=== PATIENT | male | born 1990 | race Caucasian/White ===

== ENCOUNTER 2023-06-23 23:26 | Emergency (ER) | payer SELFPAY ==
[2023-06-23 23:45] VITALS: RESP 16; TEMP 97.6
[2023-06-24 00:04] VITALS: O2SAT 99
[2023-06-24] MEDS ORDERED: BABY ASPIRIN 81 MG CHEW PO ONE (00:08)
[2023-06-24 00:11] LABS: Absolute Neutrophil Ct (ANC) 10.43 x10^3/uL (1.4-6.9); BASOPHIL % 0.5 % (0.0-0.4); Basophil (Absolute #) 0.07 x10^3/uL (0-0.4); Eosinophil % 0.2 % (0.00-5.0); Eosinophil (Absolute #) 0.03 x10^3/uL (0-0.5); Hemoglobin 14.3 g/dL (12.5-18.0); IMMATURE GRAN # 0.05 x10^3u/L (0.00-0.03); IMMATURE GRAN % 0.4 % (0.00-0.4); Lymphocyte (Absolute #) 1.77 x10^3/uL (1.0-4.6); Lymphocytes % 12.8 % (24.0-44.0); Mean Cell Volume 98.2 fL (78-100); Mean Corpuscular Hemoglobin 32.6 pg (26-32); Mean Corpuscular Hgb Concent. 33.3 g/dL (32-36); Mean Platelet Volume 10.3 fL (7.5-11.0); Monocyte (Absolute #) 1.44 x10^3/uL (0.0-1.3); Monocytes % 10.4 % (0.0-12.0); Neutrophil % 75.7 % (36.0-66.0); Platelet Count 222 x10^3/uL (150-450); Red Blood Count 4.38 x10^6/uL (4.1-5.6); White Blood Count 13.8 x10^3/uL (4.0-10.5)
[2023-06-24] MEDS ORDERED: BABY ASPIRIN 81 MG CHEW ONE (00:18)
[2023-06-24 00:25] LABS: ALBUMIN 5.5 g/dL (3.5-5.0); ANION GAP 19.3 MEQ/L (5-15); BILIRUBIN,TOTAL 0.9 mg/dL (0.2-1.3); Calcium 10.2 mg/dL (8.4-10.2); Creatinine 1 2.11 mg/dL (0.66-1.25); EST GLOMERULAR FILTRATION RATE 38.6 ML/MIN; Potassium 4.3 mmol/L (3.5-5.1); Total Protein 8.6 g/dL (6.3-8.2)
--- NOTE | 2023-06-24 00:29 | ERPHSYRPT ---
- History of Present Illness Time Seen by Provider: 06/24/23 00:07 Historian: patient Exam Limitations: no limitations Patient Subjective Stated Complaint: pt states while he was at work he began having chest pain, nonradiating. describes as aching and cramping. states pain resolved when he was leaving work. Triage Nursing Assessment: pt alert and oriented, answers questions approp. pt ambulates into room with steady gait noted. respirations nonlabored with lungs cta. heart rate 88, sinus rhythm on monitor. skin warm and dry- pt has coal dust covering him from work. Physician History: Patient is a 33-year-old male presents to our ED for evaluation of nonradiating substernal chest pain that occurred while he was at work. Patient reports chest pain lasted approximately 2 hours. Patient left work to come to our ED and chest pain went away. Upon arrival to our ED patient was pain-free. Pain was described as a achy crampy sensation. No associated nausea vomiting or diaphoresis. Patient has no cardiac history. No trauma. No fever. Patient currently asymptomatic and voices no other complaints or concerns at this time. Portions of this note were created with voice recognition technology. There may be grammatical, spelling, punctuation or sound alike errors Timing/Duration: today Activities at Onset: other (Working) Quality: aching, cramping Location: substernal Chest Pain Radiation: no radiation Severity of Pain-Max: moderate Severity of Pain-Current: mild Modifying Factors: Improves With: nothing Associated Symptoms: denies symptoms Prior Chest Pain/Cardiac Workup: no prior chest pain Nitro Today/Relief: no nitro taken today Aspirin Treatment Today: no aspirin today Allergies/Adverse Reactions: Penicillins Allergy (Verified 06/23/23 23:45) Hives Home Medications: Buprenorphine HCl/Naloxone HCl [Buprenorphin-Naloxon 8-2 mg Sl] 1 each SL DAILY 06/23/23 [History] Lisinopril 10 mg [Zestril 10 MG] 10 mg PO DAILY 06/23/23 [History] Hx Tetanus, Diphtheria Vaccination/Date Given: Yes Hx Influenza Vaccination/Date Given: No Hx Pneumococcal Vaccination/Date Given: No Immunizations Up to Date: Yes Travel Risk - International Travel Have you traveled outside of the country in past 3 weeks: No - Coronavirus Screening Are you exhibiting any of the following symptoms?: No Close contact with a COVID-19 positive Pt in past 14-21 Days: No - Vaccine Status Have you recieved a Covid-19 vaccination: No - Review of Systems Constitutional: No Symptoms, No Fever, No Chills Eyes: No Symptoms Ears, Nose, & Throat: No Symptoms Respiratory: No Symptoms, No Cough, No Dyspnea Cardiac: No Symptoms, No Chest Pain, No Edema, No Syncope Abdominal/Gastrointestinal: No Symptoms, No Abdominal Pain, No Nausea, No Vomiting, No Diarrhea Genitourinary Symptoms: No Symptoms, No Dysuria Musculoskeletal: No Symptoms, No Back Pain, No Neck Pain Skin: No Symptoms, No Rash Neurological: No Symptoms, No Dizziness, No Focal Weakness, No Sensory Changes Psychological: No Symptoms Endocrine: No Symptoms Hematologic/Lymphatic: No Symptoms Immunological/Allergic: No Symptoms All Other Systems: Reviewed and Negative - Past Medical History Pertinent Past Medical History: Yes Cardiac History: Hypertension Musculoskeletal History: Other Other Medical History: CHRONIC BACK PAIN - Past Surgical History Past Surgical History: Yes Other Surgical History: NOSE - Social History Smoking Status: Current every day smoker How long have you smoked: 20yrs Exposure to second hand smoke: Yes Drug Use: none Patient Lives Alone: No Significant Family History: no pertinent family hx - Nursing Vital Signs Nursing Vital Signs: Initial Vital Signs Temperature 97.6 F 06/23/23 23:30 Pulse Rate 88 06/23/23 23:30 Respiratory Rate 16 06/23/23 23:30 Blood Pressure 119/64 06/23/23 23:30 O2 Sat by Pulse Oximetry 100 06/23/23 23:30 Pain Scale Pain Intensity 0 - Physical Exam General Appearance: no apparent distress, alert Eye Exam: PERRL/EOMI, eyes nml inspection Ears, Nose, Throat Exam: normal ENT inspection, moist mucous membranes Neck Exam: normal inspection, non-tender, supple, full range of motion Respiratory Exam: normal breath sounds, lungs clear, airway intact, No respirat ory distress Cardiovascular Exam: regular rate/rhythm, normal heart sounds Gastrointestinal/Abdomen Exam: soft, No tenderness, No mass Back Exam: normal inspection, No CVA tenderness, No vertebral tenderness Extremity Exam: normal inspection, normal range of motion Neurologic Exam: alert, oriented x 3, cooperative, normal mood/affect, sensation nml, No motor deficits Skin Exam: normal color, warm, dry Lymphatic Exam: No adenopathy SpO2 Interpretation: normal SpO2: 99 O2 Delivery: Room Air - Course Nursing assessment & vital signs reviewed: Yes EKG Interpreted by Me: RATE ([id number]), Sinus Rhythm, NORMAL AXIS, NORMAL INTERVALS Ordered Tests: Active Orders 24 hr Category Date Time Status AMA [Release AMA] OM.NOW Care 06/24/23 01:16 Active Subsystems Engineer STAT Care 06/23/23 23:54 Active EKG-ER Only STAT Care 06/23/23 23:53 Active IV Insertion STAT Care 06/23/23 23:53 Active Pulse Oximetry (ED) STAT Care 06/23/23 23:53 Active CBC W DIFF Stat Lab 06/23/23 23:45 Completed CMP Stat Lab 06/23/23 23:45 Completed D-DIMER QUANTITATIVE Stat Lab 06/23/23 23:45 Completed TROPONIN Q4H Lab 06/23/23 23:45 Completed TROPONIN Q4H Lab 06/24/23 03:54 Ordered TROPONIN Q4H Lab 06/24/23 07:54 Ordered Urine Triage Profile Stat Lab 06/23/23 23:54 Ordered Medication Summary Discontinued Medications Generic Name Dose Route Start Last Admin Trade Name Freq PRN Reason Stop Dose Admin Aspirin 324 mg 06/24/23 00:08 06/24/23 00:20 Aspirin 81 Mg Tab.Chew PO 06/24/23 00:09 324 mg STAT ONE Administration Aspirin Confirm 06/24/23 00:18 Aspirin 81 Mg Tab.Chew Administered 06/24/23 00:19 Dose 324 mg .ROUTE .STK-MED ONE Furosemide 40 mg 06/24/23 00:31 06/24/23 00:33 Furosemide 40 Mg/4 Ml Vial IV 06/24/23 00:32 Not Given STAT ONE Lab/Rad Data: Laboratory Result Diagrams 06/23/23 23:45 06/23/23 23:45 Laboratory Results 06/23/23 06/23/23 06/23/23 Range/Units 23:45 23:45 23:45 WBC (4.0-10.5) x10^3/uL RBC (4.1-5.6) x10^6/uL Hgb (12.5-18.0) g/dL Hct (42-50) % MCV (78-100) fL MCH (26-32) pg MCHC (32-36) g/dL RDW (11.5-14.0) % Plt Count (150-450) x10^3/uL MPV (7.5-11.0) fL Gran % (36.0-66.0) % Immature Gran % (Auto) (0.00-0.4) % Nucleat RBC Rel Count (0.00-0.1) % Eos # (Auto) (0-0.5) x10^3/uL Immature Gran # (Auto) (0.00-0.03) x10^3u/L Absolute Lymphs (auto) (1.0-4.6) x10^3/uL Absolute Monos (auto) (0.0-1.3) x10^3/uL Absolute Nucleated RBC (0.00-0.01) x10^3u/L Lymphocytes % (24.0-44.0) % Monocytes % (0.0-12.0) % Eosinophils % (0.00-5.0) % Basophils % (0.0-0.4) % Absolute Granulocytes (1.4-6.9) x10^3/uL Basophils # (0-0.4) x10^3/uL D-Dimer 0.29 (0.0-0.50) mg/L Sodium 136 L (137-145) mmol/L Potassium 4.3 (3.5-5.1) mmol/L Chloride 96 L (98-107) mmol/L Carbon Dioxide 25 (22-30) mmol/L Anion Gap 19.3 H (5-15) MEQ/L BUN 32 H (9-20) mg/dL Creatinine 2.11 H (0.66-1.25) mg/dL Estimated GFR 38.6 ML/MIN Glucose 99 (74-106) mg/dL Calcium 10.2 (8.4-10.2) mg/dL Total Bilirubin 0.90 (0.2-1.3) mg/dL AST 92 H (17-59) U/L ALT 178 H (0-50) U/L Alkaline Phosphatase 69 (38-126) U/L Troponin I < 0.012 (0.000-0.034) ng/mL Serum Total Protein 8.6 H (6.3-8.2) g/dL Albumin 5.5 H (3.5-5.0) g/dL 06/23/23 Range/Units 23:45 WBC 13.8 H (4.0-10.5) x10^3/uL RBC 4.38 (4.1-5.6) x10^6/uL Hgb 14.3 (12.5-18.0) g/dL Hct 43.0 (42-50) % MCV 98.2 (78-100) fL MCH 32.6 H (26-32) pg MCHC 33.3 (32-36) g/dL RDW 12.0 (11.5-14.0) % Plt Count 222 (150-450) x10^3/uL MPV 10.3 (7.5-11.0) fL Gran % 75.7 H (36.0-66.0) % Immature Gran % (Auto) 0.4 (0.00-0.4) % Nucleat RBC Rel Count 0.0 (0.00-0.1) % Eos # (Auto) 0.03 (0-0.5) x10^3/uL Immature Gran # (Auto) 0.05 H (0.00-0.03) x10^3u/L Absolute Lymphs (auto) 1.77 (1.0-4.6) x10^3/uL Absolute Monos (auto) 1.44 H (0.0-1.3) x10^3/uL Absolute Nucleated RBC 0.00 (0.00-0.01) x10^3u/L Lymphocytes % 12.8 L (24.0-44.0) % Monocytes % 10.4 (0.0-12.0) % Eosinophils % 0.2 (0.00-5.0) % Basophils % 0.5 (0.0-0.4) % Absolute Granulocytes 10.43 H (1.4-6.9) x10^3/uL Basophils # 0.07 (0-0.4) x10^3/uL D-Dimer (0.0-0.50) mg/L Sodium (137-145) mmol/L Potassium (3.5-5.1) mmol/L Chloride (98-107) mmol/L Carbon Dioxide (22-30) mmol/L Anion Gap (5-15) MEQ/L BUN (9-20) mg/dL Creatinine (0.66-1.25) mg/dL Estimated GFR ML/MIN Glucose (74-106) mg/dL Calcium (8.4-10.2) mg/dL Total Bilirubin (0.2-1.3) mg/dL AST (17-59) U/L ALT (0-50) U/L Alkaline Phosphatase (38-126) U/L Troponin I (0.000-0.034) ng/mL Serum Total Protein (6.3-8.2) g/dL Albumin (3.5-5.0) g/dL - Progress Progress: improved Air Movement: good Progress Note: Patient is a 33-year-old male presents to our ED for evaluation of chest pain. Patient arrived from work. Physical exam essentially nonremarkable. Work-up reveals a leukocytosis. Acute renal injury. BUN 32 creatinine 2.11. D-dimer negative. Initial troponin negative. EKG reveals normal sinus rhythm. Patient received aspirin due to complaint of chest pain. Patient advised that we will need a second blood draw for a second troponin. However he would have to wait for another period of time before the second blood draw could be completed. Patient stated he could not wait. Patient states he had to go home because he had to be at work in the morning. Patient advised of the derangements observed including the abnormal kidney function elevated anion gap and leukocytosis. In spite of these findings patient has decided to leave. Patient's at bedside agreed with patient's decision to leave. Patient is of sound mind. Patient is appropriate to make informed and independ ent medical decisions. Patient understands that leaving AGAINST MEDICAL ADVICE can result in delayed diagnosis, increased risk of morbidity, mortality, short and long-term disability including . In spite of these risks, patient has decided to leave AGAINST MEDICAL ADVICE. Patient understands that he may return to our ED at any point if he reconsiders. Patient agrees to follow-up with his primary care doctor within 48 hours for reevaluation. Patient voices no other complaints or concerns at this time. We will release patient AGAINST MEDICAL ADVICE per their request. 06/24/23 01:22 Complexity of problems addressed is moderate acute complicated No critical care time Complex of data reviewed and analyzed is moderate. Test ordered. Test reviewed. Clinical correlation made between findings and history and physical examination. Patient left before chest x-ray could be ordered. Chest x-ray not initially ordered as we are waiting for the D-dimer to result as this would have potentially required a CT chest in which case a chest x-ray would have been an unnecessary redundancy. Risk of complication and a risk morbidity/mortality of patient management is moderate. Patient leaving AGAINST MEDICAL ADVICE. Patient received aspirin in our ED. Patient has significant abnormalities observed on his laboratory studies which placed patient's health at risk. Patient left AMA. Vitals stable. Time spent to discharge patient approximately 15 minutes. No social determinants of health present to impede follow-up. at bedside agrees with patient's quest to leave AMA. 06/24/23 01:24 Blood Culture(s) Obtained: No Antibiotics given: No Counseled pt/family regarding: lab results, diagnosis, need for follow-up, rad results - Departure Departure Disposition: AMA Clinical Impression: Chest pain, Acute renal injury, Leukocytosis, High anion gap metabolic acidosis, Elevated liver enzymes Condition: Stable Critical Care Time: No Referrals: DG SNIDER MD [Primary Care Provider] - Follow up/PCP as directed Additional Instructions: Discharge/Care Plan IZABELA JOSHUA was seen on 06/24/23 in the Emergency Room. The patient was counseled regarding Diagnosis,Lab results, Imaging studies, need for follow up and when to return to the Emergency Room. Prescriptions given: Discharge Note I have spoken with the patient and/or caregivers. I have explained the patient's condition, diagnosis and treatment plan based on the information available to me at this time. I have answered the patient's and/or caregiver's questions and addressed any concerns. The patient and/or caregivers have as good understanding of the patient's diagnosis, condition and treatment plan as can be expected at this point. The vital signs have been stable. The patient's condition is stable and appropriate for discharge from the emergency department. The patient will pursue further outpatient evaluation with the primary care physician or other designated or consulting physician as outlined in the discharge instructions. The patient and/or caregivers are agreeable to this plan of care and follow-up instructions have been explained in detail. The patient and/or caregivers have received these instruction. The patient/and or caregivers are aware that any significant change in condition or worsening of symptoms should prompt an immediate return to this or the closest emergency department or call 911.
[2023-06-24] MEDS ORDERED: Lasix 40 MG/4 ML IV ONE (00:31)
[2023-06-24 00:45] VITALS: BP 120/71; PULSE 78
== END 2023-06-24 01:20 | disposition left against medical advice (07) ==
LOC: ED 23:26
DX: R07.9 Chest pain, unspecified (principal); N17.9 Acute kidney failure, unspecified; D72.829 Elevated white blood cell count, unspecified; E87.20 Acidosis, unspecified; R74.8 Abnormal levels of other serum enzymes; I10 Essential (primary) hypertension; Z79.891 Long term (current) use of opiate analgesic; Z79.899 Other long term (current) drug therapy; Z28.310 Unvaccinated for COVID-19; Z72.0 Tobacco use
CPT/HCPCS: 36000; 36415; 80053; 84484; 85025; 85379; 93005; 93041; 94760; 99284; A9270-GY